=== PATIENT | female | born 1945 | race Caucasian/White ===

== ENCOUNTER → 2016-07-07 | Outpatient (CLI) | payer OTHER ==
[~2016-07-07] MED LIST: ABILIFY20 MG PO; B-COMPLEX PLUS1 EACH PO; BUDEPRION XL300 MG PO; CITRACAL + BON1 EACH PO; NORCO 5-325 TA1 EACH PO; PROAIR HFA8.5 GM INH; SERTRALINE HCL100 MG PO; SINGULAIR 10 MG10 MG PO; SYMBICORT160 MCG/4. INH; SYSTANE 0.3-0.1 EACH GTT; VESICARE 5 MG TA5 M1 PO; WELLBUTRIN SR150 MG PO; [UNRECOGNIZED DRUG - OTHER]
== END ==
LOC: RAD 05-13 14:35
DX: R06.00 Dyspnea, unspecified (principal)

== ENCOUNTER → 2016-08-30 | Outpatient (CLI) | payer OTHER | LOC: RAD 13:19 | DX: Z12.31 Encounter for screening mammogram for malignant neoplasm of breast (principal) ==

== ENCOUNTER 2017-05-02 16:48 | Emergency (ER) | payer OTHER ==
[~2017-05-02] VITALS: Ht 162.6 cm; Wt 100.7 kg
[2017-05-02] MEDS ORDERED: NORCO 5-325 TA1 EACH PO (17:49)
[2017-05-02 18:39] VITALS: BP 146/64
== END 2017-05-02 18:40 | disposition home or self-care (01) ==
LOC: ER 16:48
DX: S13.4XXA Sprain of ligaments of cervical spine, initial encounter (principal); M25.562 Pain in left knee; M25.561 Pain in right knee; M54.9 Dorsalgia, unspecified; J44.9 Chronic obstructive pulmonary disease, unspecified; G47.30 Sleep apnea, unspecified; Z87.891 Personal history of nicotine dependence; Z88.8 Allergy status to other drugs, medicaments and biological substances; V49.09XA Driver injured in collision with other motor vehicles in nontraffic accident, initial encounter; Y93.89 Activity, other specified; Y92.89 Other specified places as the place of occurrence of the external cause; Y99.8 Other external cause status

== ENCOUNTER → 2017-06-13 | Outpatient (CLI) | payer OTHER | LOC: ULTRA 09:15 | DX: N95.0 Postmenopausal bleeding (principal) ==

== ENCOUNTER → 2018-01-22 | Outpatient (CLI) | payer OTHER | LOC: RAD 14:34 | DX: Z12.31 Encounter for screening mammogram for malignant neoplasm of breast (principal) ==

== ENCOUNTER → 2019-03-04 | Outpatient (CLI) | payer OTHER | LOC: RAD 11:20 | DX: Z12.31 Encounter for screening mammogram for malignant neoplasm of breast (principal) ==